=== PATIENT | female | born 1975 | race American Indian/Alaskan Native ===

== ENCOUNTER 2019-11-27 19:19 | Emergency (ER) | payer OTHER ==
[2019-11-27 19:52] VITALS: BP 123/77
--- NOTE | 2019-11-27 19:58 | Event Note ---
ED Screening Note Date of service: 11/27/19 Time: 19:50 ED Screening Note: This initial assessment/diagnostic orders/clinical plan/treatment(s) is/are subject to change based on patients health status, clinical progression and re- assessment by fellow clinical providers in the ED. Further treatment and workup at subsequent clinical providers discretion. Patient/guardian urged not to elope from the ED as their condition may be serious if not clinically assessed and managed. Initial orders include: 44yo F states that she has chills, N&V, bodyaches, diarrhea, SOB and coughing x 1 week. She states this started after a trip to [place].
[2019-11-27 20:33] LABS: Hematocrit 42.3 % (30.3-42.9); Hemoglobin 13.8 gm/dl (10.1-14.3); Mean Corpuscular HGB Conc 33 % (30-34); Mean Corpuscular Volume 93 fl (79-97); Platelet Count 208 K/mm3 (140-440); Red Blood Count 4.55 M/mm3 (3.65-5.03); Red Cell Distribution Width 15.2 % (13.2-15.2)
[2019-11-27] MEDS ORDERED: SODIUM CHLORIDE 0.9% 1000 ML 1,000 ML IV ONE (20:39)
[2019-11-27] MEDS ORDERED: HYOSCYAMINE SUBL 0.125 MG TAB SL ONE (20:39)
[2019-11-27] MEDS ORDERED: ONDANSETRON 4 MG/2 ML INJ IV ONE (20:39)
[2019-11-27 20:53] LABS: Alanine Aminotransferase 9 units/L (7-56); Albumin 4.4 g/dL (3.9-5); BUN/Creatinine Ratio 22; Blood Urea Nitrogen 13 mg/dL (7-17); Calcium 10.4 mg/dL (8.4-10.2); Hemolysis Index 7
--- NOTE | 2019-11-27 21:40 | Emergency Department Report ---
ED General Adult HPI - General Chief complaint: Nausea/Vomiting/Diarrhea Stated complaint: WEAKNESS, DIARRHEA, CHEST PAIN Time Seen by Provider: 11/27/19 19:49 Source: patient Mode of arrival: Ambulatory Limitations: No Limitations - History of Present Illness Initial comments: Patient is a 44-year-old female who presents emergency room with complaints of generalized weakness that began 7 days ago. She has associated generalized fatigue, nausea, vomiting, diarrhea, chest discomfort, nonproductive cough, rhinorrhea. She states that she is only had one episode of vomiting but has had multiple episodes of diarrhea. She denies any fever, SOB, abdominal pain, hematochezia, hematemesis, melena, pus in the stool. She denies any sick contacts. She states that she did recently travel to [place]. She denies any past medical history. She has an allergy to penicillin. Last menstrual cycle November 08. Severity scale (0 -10): 7 - Related Data Previous Rx's Medication Instructions Recorded Last Taken Type Dicyclomine [Bentyl] 20 mg PO QID PRN #14 tablet 11/27/19 Unknown Rx Ondansetron [Zofran Odt] 4 mg PO Q8HR PRN #14 tab.rapdis 11/27/19 Unknown Rx Allergies Allergy/AdvReac Type Severity Reaction Status Date / Time Penicillins Allergy Hives Verified 11/27/19 19:21 ED Review of Systems ROS: Stated complaint: WEAKNESS, DIARRHEA, CHEST PAIN Other details as noted in HPI Comment: All other systems reviewed and negative ED Past Medical Hx - Past Medical History Previous Medical History?: Yes Hx Hypertension: Yes - Surgical History Past Surgical History?: Yes Additional Surgical History: right hand surgery, 'partial tubal' - Medications Home Medications: Home Medications Medication Instructions Recorded Confirmed Last Taken Type Dicyclomine [Bentyl] 20 mg PO QID PRN #14 tablet 11/27/19 Unknown Rx Ondansetron [Zofran Odt] 4 mg PO Q8HR PRN #14 tab.rapdis 11/27/19 Unknown Rx ED Physical Exam - General Limitations: No Limitations General appearance: alert, in no apparent distress - Head Head exam: Present: atraumatic, normocephalic - Eye Eye exam: Present: normal appearance - ENT ENT exam: Present: mucous membranes moist - Respiratory Respiratory exam: Present: normal lung sounds bilaterally, chest wall tenderness (reproducible anterior chest wall ttp). Absent: respiratory distress, wheezes, rales, rhonchi, stridor, accessory muscle use, decreased breath sounds, prolonged expiratory - Cardiovascular Cardiovascular Exam: Present: regular rate, normal rhythm, normal heart sounds. Absent: systolic murmur, diastolic murmur, rubs, gallop - GI/Abdominal GI/Abdominal exam: Present: soft, normal bowel sounds. Absent: distended, tenderness, guarding, rebound, rigid - Neurological Exam Neurological exam: Present: alert, oriented X3 - Psychiatric Psychiatric exam: Present: normal affect, normal mood - Skin Skin exam: Present: warm, dry, intact ED Course Vital Signs 11/27/19 19:51 Temperature 98.8 F Pulse Rate 69 Respiratory 18 Rate Blood Pressure 123/77 [Right] O2 Sat by Pulse 100 Oximetry ED Medical Decision Making - Lab Data Result diagrams: 11/27/19 19:58 11/27/19 19:58 - EKG Data EKG shows normal: sinus rhythm, axis, intervals, QRS complexes, ST-T waves Rate: bradycardia - Radiology Data Radiology results: report reviewed interpreted by me: CHEST 2 VIEWS INDICATION / CLINICAL INFORMATION: Cough, chest pain. COMPARISON: None available. FINDINGS: SUPPORT DEVICES: None. HEART / MEDIASTINUM: No significant abnormality. LUNGS / PLEURA: No significant pulmonary or pleural abnormality. No pneumothorax . Elevated left diaphragm noted. ADDITIONAL FINDINGS: No significant additional findings. IMPRESSION: No acute finding. Signer Name: Pascual Thrasher MD Signed: 11/27/2019 10:40 PM Workstation Name: [id number] Transcribed By: DMB Dictated By: Pascual Thrasher MD Electronically Authenticated By: Pascual Thrasher MD Signed Date/Time: 11/27/192239 DD/ 39 TD/TT: - Medical Decision Making Patient is a 44-year-old female who presents emergency room with complaints of generalized weakness that began 7 days ago. She has associated generalized fatigue, nausea, vomiting, diarrhea, chest discomfort, nonproductive cough, rhin orrhea. She states that she is only had one episode of vomiting but has had multiple episodes of diarrhea. She denies any fever, SOB, abdominal pain, hematochezia, hematemesis, melena, pus in the stool. She denies any sick contacts. She states that she did recently travel to [place]. She denies any past medical history. She has an allergy to penicillin. Last menstrual cycle November 08. Vitals are normal. Labs are stable. Troponin is negative. hCG is negative. Chest x-ray with no acute process. Patient given 1 L IV fluid, Zofran, Bentyl. Patient is able to tolerate p.o. intake. Patient does not have any risk factors for COVID 19 she only traveled to [place] and has not traveled outside the country or to [place] or [place] or [place]. History and examination consistent with viral illness. PERC criteria negative for PE. pt given prescription for zofran and bentyl. advised pt Please take medication as prescribed as needed. Increase your fluid intake over the next several days. Eat a bland diet. Follow-up with a primary care doctor. Please self isolate at home until you are symptom-free for 48 hours. Return to the emergency room immediately for any new or worsening symptoms including but not limited to shortness of breath, difficulty breathing, high fevers, unable to tolerate by mouth intake, etc. - Differential Diagnosis URI, PNA, viral syndrome, gastroenteritis Critical care attestation.: If time is entered above; I have spent that time in minutes in the direct care of this critically ill patient, excluding procedure time. ED Disposition Clinical Impression: Nausea vomiting and diarrhea, Generalized weakness, Dry cough, Rhinorrhea Disposition: DC-01 TO HOME OR SELFCARE Is pt being admited?: No Does the pt Need Aspirin: No Condition: Stable Instructions: Gastroenteritis (ED), Viral Syndrome (ED) Additional Instructions: Please take medication as prescribed as needed. Increase your fluid intake over the next several days. Eat a bland diet. Follow-up with a primary care doctor. Please self isolate at home until you are symptom-free for 48 hours. Return to the emergency room immediately for any new or worsening symptoms including but not limited to shortness of breath, difficulty breathing, high fevers, unable to tolerate by mouth intake, etc. Prescriptions: Dicyclomine [Bentyl] 20 mg PO QID PRN #14 tablet PRN Reason: abdominal cramping Ondansetron [Zofran Odt] 4 mg PO Q8HR PRN #14 tab.rapdis PRN Reason: Nausea And Vomiting Referrals: PAULY CAMPUZANO MD [Staff Physician] - 3-5 Days [facility] [Provider Group] - 3-5 Days JOSE WATSON MD [Staff Physician] - 3-5 Days Time of Disposition: 22:48 Print Language: UPPER SORBIAN
[2019-11-27] MEDS ORDERED: DICYCLOMINE 20 MG TAB PO ONE (21:42)
--- NOTE | 2019-11-27 22:45 | XRay Report ---
CHEST 2 VIEWS INDICATION / CLINICAL INFORMATION: Cough, chest pain. COMPARISON: None available. FINDINGS: SUPPORT DEVICES: None. HEART / MEDIASTINUM: No significant abnormality. LUNGS / PLEURA: No significant pulmonary or pleural abnormality. No pneumothorax. Elevated left diaph ragm noted. ADDITIONAL FINDINGS: No significant additional findings. IMPRESSION: No acute finding. Signer Name: Pascual Thrasehr MD Signed: 11/27/2019 10:40 PM Workstation Name: [id number]
== END 2019-11-27 23:00 | disposition home or self-care (01) ==
LOC: ED 19:19
DX: R11.2 Nausea with vomiting, unspecified (principal); R19.7 Diarrhea, unspecified; R53.1 Weakness; J34.89 Other specified disorders of nose and nasal sinuses; R05 Cough
CPT/HCPCS: 36415; 71046; 80053; 84484; 84703; 85027; 93005; 93010; 96361; 96374; 99284; J2405; J7030

== ENCOUNTER 2021-02-25 11:56 | Emergency (ER) | payer SELFPAY ==
[2021-02-25 12:16] VITALS: BP 122/82
== END 2021-02-25 14:04 ==
LOC: ED 11:56
DX: R51.9 Headache, unspecified (principal); Z53.21 Procedure and treatment not carried out due to patient leaving prior to being seen by health care provider

== ENCOUNTER 2021-10-24 23:29 | Emergency (ER) | payer OTHER ==
--- NOTE | 2021-10-25 01:51 | XRay Report ---
XR shoulder 2+V RT INDICATION / CLINICAL INFORMATION: injury COMPARISON: None available. FINDINGS: BONES / JOINT(S): No acute fracture or subluxation. No significant arthritis. SOFT TISSUES: No significant abnormality. ADDITIONAL FINDINGS: None. IMPRESSION: No acute osseous findings in the right shoulder. Signer Name: Maxwell Artis MD Signed: 10/25/2021 1:47 AM Workstation Name: [id number]
[2021-10-25] MEDS ORDERED: HYDROcodone/ACETAMINOPHEN 5-325 MG TAB PO STA (02:11)
--- NOTE | 2021-10-25 05:35 | Emergency Department Report ---
ED Upper Extremity Inj HPI - General Chief Complaint: Extremity Injury, Upper Stated Complaint: RT SHOULDER INJURY Time Seen by Provider: 10/25/21 02:11 Source: patient Mode of arrival: Ambulatory Limitations: No Limitations - History of Present Illness Initial Comments: 46-year-old female history at work and left a box weighing over 170 pounds with a colleague and when she got up to discharge from trying to box over 30 severe sharp and burning pain to her right shoulder which was followed by continued discomfort presents emergency department seeking further evaluation treatment options. Complaint: Injury to:: right, shoulder -: Gradual Other Extremity Injury: Shoulder: Right Handedness: right Place: home Improves With: none Worsens With: none Context: injury Associated Symptoms: denies other symptoms Treatments Prior to Arrival: cold therapy - Related Data Previous Rx's Medication Instructions Recorded Last Taken Type Dicyclomine [Bentyl] 20 mg PO QID PRN #14 tablet 11/27/19 Unknown Rx Ondansetron [Zofran Odt] 4 mg PO Q8HR PRN #14 tab.rapdis 11/27/19 Unknown Rx Topiramate [Topamax] 25 mg PO QHS #60 tablet 04/19/20 Unknown Rx Ketorolac [Toradol] 10 mg PO Q6H PRN #20 10/25/21 Unknown Rx Allergies Allergy/AdvReac Type Severity Reaction Status Date / Time Penicillins Allergy Hives Verified 11/27/19 19:21 ED Review of Systems ROS: Stated complaint: RT SHOULDER INJURY Other details as noted in HPI Comment: All other systems reviewed and negative ED Past Medical Hx - Past Medical History Previous Medical History?: Yes Hx Hypertension: Yes Additional medical history: iron deficiency "have to get iron infusions every 3- 6 mos, but I haven't been" - Surgical History Past Surgical History?: Yes Additional Surgical History: right hand surgery, 'partial tubal'. gastric bypass 06/2013 - Social History Smoking Status: Never Smoker Substance Use Type: Alcohol - Medications Home Medications: Home Medications Medication Instructions Recorded Confirmed Last Taken Type Dicyclomine [Bentyl] 20 mg PO QID PRN #14 tablet 11/27/19 04/17/20 Unknown Rx Ondansetron [Zofran Odt] 4 mg PO Q8HR PRN #14 tab.rapdis 11/27/19 04/17/20 Unknown Rx Topiramate [Topamax] 25 mg PO QHS #60 tablet 04/19/20 Unknown Rx Ketorolac [Toradol] 10 mg PO Q6H PRN #20 10/25/21 Unknown Rx ED Physical Exam - General Limitations: No Limitations General appearance: alert, in no apparent distress - Head Head exam: Present: atraumatic, normocephalic - Eye Eye exam: Present: normal appearance - ENT ENT exam: Present: mucous membranes moist - Neck Neck exam: Present: normal inspection - Respiratory Respiratory exam: Present: normal lung sounds bilaterally. Absent: respiratory distress - Cardiovascular Cardiovascular Exam: Present: regular rate, normal rhythm. Absent: systolic murmur, diastolic murmur, rubs, gallop - GI/Abdominal GI/Abdominal exam: Present: soft, normal bowel sounds - Extremities Exam Extremities exam: Present: normal inspection, tenderness - Expanded Upper Extremity Exam Right Shoulder Exam: Present: tenderness, tenderness over AC joint, other (Decreased range of motion due to pain no sulcus sign. Pain with Coulter and Ethridge's test. Pain with palpation anterior deltoids well). Absent: full ROM, swelling, abrasion - Back Exam Back exam: Present: normal inspection - Neurological Exam Neurological exam: Present: alert, oriented X3 - Psychiatric Psychiatric exam: Present: normal affect, normal mood - Skin Skin exam: Present: warm, dry, intact, normal color. Absent: rash ED Course Vital Signs 10/25/21 02:23 Respiratory 14 Rate ED Medical Decision Making - Radiology Data Radiology results: report reviewed [facility] [address] [place] [address] XRay Report Signed Patient: TRISH OJEDA MR#: [id number] : 1975 Acct:[id number] Age/Sex: 46 / F ADM Date: 10/24/21 Loc: ED Attending Dr: Ordering Physician: DEISI BAIRD MD Date of Service: 10/25/21 Procedure(s): XR shoulder 2+V RT Accession Number(s): [id number] cc: DEISI BAIRD MD Fluoro Time In Minutes: XR shoulder 2+V RT INDICATION / CLINICAL INFORMATION: injury COMPARISON: None available. FINDINGS: BONES / JOINT(S): No acute fracture or subluxation. No significant arthritis. SOFT TISSUES: No significant abnormality. ADDITIONAL FINDINGS: None. IMPRESSION: No acute osseous findings in the right shoulder. Signer Name: Prem Artis MD Signed: 10/25/2021 1:47 AM Workstation Name: [id number] Transcribed By: ANDRES Dictated By: PREM ARTIS MD Electronically Authenticated By: PREM ARTIS MD Signed Date/Time: 10/25/21146 DD/ 2 TD/TT: Print Cancel Critical care attestation.: If time is entered above; I have spent that time in minutes in the direct care of this critically ill patient, excluding procedure time. ED Disposition Clinical Impression: Shoulder strain Disposition: 01 HOME / SELF CARE / HOMELESS Is pt being admited?: No Does the pt Need Aspirin: No Condition: Stable Instructions: How to Use Cold Therapy, Bied-we-Ngil, Shoulder Sprain, Elastic Bandage and RICE Therapy, How to Use Cold Therapy Prescriptions: Ketorolac [Toradol] 10 mg PO Q6H PRN #20 PRN Reason: Pain Referrals: [facility] [Provider Group] - 3-5 Days LACI HUSTON MD [Staff Physician] - 3-5 Days Forms: Work/School Release Form(ED)
== END 2021-10-25 05:40 | disposition home or self-care (01) ==
LOC: ED 23:29
DX: S46.911A Strain of unspecified muscle, fascia and tendon at shoulder and upper arm level, right arm, initial encounter (principal); I10 Essential (primary) hypertension; Z98.890 Other specified postprocedural states; X50.0XXA Overexertion from strenuous movement or load, initial encounter; X50.9XXA Other and unspecified overexertion or strenuous movements or postures, initial encounter; Y93.89 Activity, other specified; Y92.89 Other specified places as the place of occurrence of the external cause; Y99.8 Other external cause status
CPT/HCPCS: 99283

== ENCOUNTER 2021-12-03 09:56 | Emergency (ER) | payer SELFPAY ==
[2021-12-03 11:27] VITALS: BP 142/79
[2021-12-03] MEDS ORDERED: ONDANSETRON 4 MG ODT TAB PO ONE (12:06)
--- NOTE | 2021-12-03 12:06 | Emergency Department Report ---
Minor Respiratory - HPI Chief Complaint: Upper Respiratory Infection Stated Complaint: DIARRHEA/CHEST DISCOMFORT/VOMITING BLOOD/HEADACHE Time Seen by Provider: 12/03/21 11:35 Duration: 3 Days Pain Location: Throat, Other Severity: mild Minor Respiratory: Yes Able to Tolerate Fluids, Yes Cough, No Rhinorrhea, No Sore Throat, No Ear Pain, No Sick Contacts, No Hemoptysis, No Chest Pain, No Shortness of Breath, No Fever Other History: 46-year-old patient comes to the ER today with cough, nausea vomiting and diarrhea. Subjective fever/chills. She has no associated abdominal pain. No dysuria. No vaginal discharge. Her symptoms are concerning for COVID-19. She has not been immunized. She denies being around anybody that is ill. During her 2 hours now in the ER she has had no nausea vomiting or diarrhea. She has no fever on admission to triage. She is ambulatory and [id number]-pdl-hjrrgvlth. I explained to her that we do not do Covid testing in the ER. She has no tachycardia or hypotension. She is not hypoxic. ED Review of Systems ROS: Stated complaint: DIARRHEA/CHEST DISCOMFORT/VOMITING BLOOD/HEADACHE Other details as noted in HPI Comment: All other systems reviewed and negative ED Past Medical Hx - Past Medical History Hx Hypertension: Yes Additional medical history: iron deficiency "have to get iron infusions every 3- 6 mos, but I haven't been" - Surgical History Past Surgical History?: Yes Additional Surgical History: right hand surgery, 'partial tubal'. gastric bypass 06/2013 - Family History Family history: no significant - Social History Smoking Status: Never Smoker Substance Use Type: None - Medications Home Medications: Home Medications Medication Instructions Recorded Confirmed Last Taken Type Ondansetron [Zofran Odt] 4 mg PO Q8HR PRN #10 tab.rapdis 12/03/21 Unknown Rx Minor Respiratory Exam - Exam General: Vital signs noted. No distress. Alert and acting appropriately. HEENT: Yes Moist Mucous Membranes, No Pharyngeal Erythema, No Pharyngeal Exudates, No Rhinorrhea, No Conjuctival Injection, No Frontal Tenderness, No Maxillary Tenderness Ear: Neither TM Bulge, Neither TM Erythema, Neither EAC Pain, Neither EAC Discharge Neck: Yes Supple, No Adenopathy Lungs: Yes Good Air Exchange, No Wheezes, No Ronchi, No Stridor, No Cough, No Labored Respirations, No Retractions, No Use of Accessory Muscles, No Other Abnormal Lung Sounds Heart: Yes Regular, No Murmur Abdomen: Yes Normal Bowel Sounds, No Tenderness, No Peritoneal Signs Skin: No Rash, No Edema Neurologic: Alert and oriented, no deficits. Musculoskeletal: Unremarkable. ED Course Vital Signs 12/03/21 11:26 Temperature 98.4 F Pulse Rate 80 Respiratory 20 Rate Blood Pressure 142/79 [Right] O2 Sat by Pulse 100 Oximetry - Reevaluation(s) Reevaluation #1: 12/03/21 12:02 Patient reports she is taking her vitamins status post gastric bypass surgery. She also gets iron injections. Patient has had no nausea vomiting or diarrhea while in the ER. ED Medical Decision Making - Radiology Data Radiology results: report reviewed, image reviewed No acute process - Medical Decision Making Vital Signs 12/03/21 11:26 Temperature 98.4 F Pulse Rate 80 Respiratory 20 Rate Blood Pressure 142/79 [Right] O2 Sat by Pulse 100 Oximetry X-ray shows no infiltrate. Patient symptoms concerning for COVID-19 : Especially in the context of her not being immunized. Patient being discharged home with conservative management. Should her symptoms worsen she has been instructed to come back to the ER. On discharge she is ambulatory, taking p.o. in no acute distress. Patient being discharged home with discharge plan of care including diet, activity, medications and follow-up. She verbalizes understanding of discharge plan of care - Differential Diagnosis Symptoms or concerns concerning for Covid Critical care attestation.: If time is entered above; I have spent that time in minutes in the direct care of this critically ill patient, excluding procedure time. ED Disposition Clinical Impression: Viral illness Disposition: HOME / SELF CARE / HOMELESS Is pt being admited?: No Does the pt Need Aspirin: No Condition: Stable Instructions: Viral Respiratory Infection, Qonl-Ae-Ttyd, Hand Washing, E asy-to-Read Additional Instructions: [id number] Lomotil can be used for your diarrhea Try to stay well-hydrated with water and Gatorade. I have given you Zofran for the nausea. X-ray is normal today. Your symptoms are concerning for COVID-19, I would recommend formal testing. Take appropriate isolation/disease prevention strategies until you have a negative Covid test. Should your symptoms worsen follow-up with your primary care provider. Referrals been given below Prescriptions: Ondansetron [Zofran Odt] 4 mg PO Q8HR PRN #10 tab.rapdis PRN Reason: Vomiting Referrals: PAULY CAMPUZANO MD [Staff Physician] - 3-5 Days Forms: Work/School Release Form(ED) Time of Disposition: 12:03
--- NOTE | 2021-12-03 12:07 | XRay Report ---
CHEST 2 VIEWS INDICATION / CLINICAL INFORMATION: cough. COMPARISON: None available. FINDINGS: SUPPORT DEVICES: None. HEART / MEDIASTINUM: No significant abnormality. LUNGS / PLEURA: No significant pulmonary or pleural abnormality. No pneumothorax. ADDITIONAL FINDINGS: No significant additional findings. IMPRESSION: 1. No acute findings. Signer Name: Jamal Chanel MD Signed: 12/03/2021 12:02 PM Workstation Name: [id number]
== END 2021-12-03 12:37 | disposition home or self-care (01) ==
LOC: ED 09:56
DX: I10 Essential (primary) hypertension (principal); B34.9 Viral infection, unspecified
CPT/HCPCS: 71046; 99283; J3490; Q0162